=== PATIENT | male | born 1990 | race Caucasian/White ===

== ENCOUNTER 2019-03-08 00:29 | Emergency (ER) | payer OTHER ==
[~2019-03-08] VITALS: Ht 177.8 cm; Wt 68.0 kg
[2019-03-08 00:41] VITALS: BP 130/88
[2019-03-08] MEDS ORDERED: PREDNISONE 20 M20 MG PO (00:46)
[2019-03-08] MEDS ORDERED: DORYX MPC120 MG PO (00:50)
[2019-03-08] MEDS ORDERED: VENTOLIN HFA INH8 GM INH (00:51)
[2019-03-08] MEDS ORDERED: PROAIR HFA8.5 GM INH (00:51)
== END 2019-03-08 01:03 | disposition home or self-care (01) ==
LOC: ER 00:29
DX: J06.9 Acute upper respiratory infection, unspecified (principal); J45.909 Unspecified asthma, uncomplicated